=== PATIENT | male | born 1950 | race Caucasian/White ===

== ENCOUNTER 2023-02-25 06:03 | Inpatient (IN) ==
--- NOTE | 2023-02-11 09:35 | PAT Medication Instructions ---
Medication Instructions Date of Service February 11, 2023 Home Medications Medication Instructions Recorded Acetaminophen (Tylenol Extra 1,000 mg PO Q8H 21 days #126 tabs 03/02/16 Strength) albuterol sulfate 90 mcg/actuation 2 inh inhalation Q6H PRN shortness 06/16/22 aerosol inhaler (Ventolin HFA) of breath or wheezing #6.7 grams Acetaminophen (Tylenol Extra Strength) 1,000 mg PO Q8H albuterol sulfate 90 mcg/actuation aerosol inhaler (Ventolin HFA) 2 inh inhalation Q6H PRN atorvastatin 10 mg tablet 10 mg PO QAM ibuprofen 600 mg tablet 600 mg PO Q6H PRN lisinopril 20 mg-hydrochlorothiazide 12.5 mg tablet 1 tab PO QAM lorazepam 0.5 mg tablet 0.5 mg PO HS PRN omeprazole 20 mg capsule,delayed release 20 mg PO QAM ASK your surgeon for instructions ibuprofen 600 mg tablet 600 mg PO Q6H PRN DO NOT take the morning of surgery lisinopril 20 mg-hydrochlorothiazide 12.5 mg tablet 1 tab PO QAM Take morning of surgery With a small sip of water, OTHERWISE NOTHING TO EAT OR DRINK AFTER MIDNIGHT: Acetaminophen (Tylenol Extra Strength) 1,000 mg PO Q8H albuterol sulfate 90 mcg/actuation aerosol inhaler (Ventolin HFA) 2 inh inhalation Q6H PRN(use if needed; please bring with you to hospital day of surgery if possible) atorvastatin 10 mg tablet 10 mg PO QAM omeprazole 20 mg capsule,delayed release 20 mg PO QAM Take evening before surgery Acetaminophen (Tylenol Extra Strength) 1,000 mg PO Q8H albuterol sulfate 90 mcg/actuation aerosol inhaler (Ventolin HFA) 2 inh inhalation Q6H PRN(if needed) lorazepam 0.5 mg tablet 0.5 mg PO HS PRN(if needed) Other Notes If you have any questions please call us at [phone] or [phone] or [phone] or [phone]
--- NOTE | 2023-02-17 09:59 | Communication Note ---
Patient scheduled for L2-L3 Decompression and Fusion, L3-S1 Hardware Removal, Spinal Cord Monitoring 02/25/[address] Plasencia at [facility]. Spoke with patient 02/17/23 via phone- he states that he has dry cough + congestion with symptom onset 02/16/23. Denies fever, chills, shortness of breath, chest pain, wheezing. Reports that his had similar cold the week prior (did not Covid test). Patient is scheduled for PAT visit 02/18/23. Home Covid test negative. Decision for patient to keep 02/18 PAT visit as scheduled to evaluate/discuss further (given negative Covid home testing). Patient advised to contact/update PAT prior to visit if worsening of symptoms prior to visit. Will further assess patient at upcoming PAT visit.
--- NOTE | 2023-02-18 10:53 | Anesthesiology Consultation ---
Date of Service February 18, 2023 Assessment & Plan (1) Encounter for pre-operative examination: - Case discussed in detail with Dr. Rodriguez including EKG changes, he advised no further evaluation is needed prior to surgery from his standpoint. Patient denies change or increased symptoms since yesterday. He is agreeable to needed COVID test given upcoming surgery: negative. Communication note 02/17/23: Patient scheduled for L2-L3 Decompression and Fusion, L3-S1 Hardware Removal, Spinal Cord Monitoring 02/25/[address] Plasencia at [facility]. Spoke with patient 02/17/23 via phone-he states that he has dry cough + congestion with symptom onset 02/16/23. Denies fever, chills, shortness of breath, chest pain, wheezing. Reports that his had similar cold the week prior (did not Covid test). Patient is scheduled for PAT visit 02/18/23. Home Covid test negative. Decision for patient to keep 02/18 PAT visit as scheduled to evaluate/discuss further (given negative Covid home testing). Patient advised to contact/update PAT prior to visit if worsening of symptoms prior to visit. Will further assess patient at upcoming PAT visit. Chart Review Chart Review: Acceptable Risk for Surgery and Patient seen in Pre Admission Testing Consults Requested none Teaching & Discussion Pre-Anesthesia Teaching/Discussion Notes: Instructed NPO after midnight before surgery, except medications with 15 cc of water. Medication instructions provided according to the PAT guidelines. ASA ASA2 Proposed Anesthesia Anesthesia Type: General Risk / Benefits Reviewed With: PT / POA / Parent / Guardian, Accepts Plan and Informed Consent Obtained History Surgery Operation Date: 02/25/23 07:45 Proposed Procedures p L2-L3 Decompression and Fusion, L3-S1 Hardware Removal, Spinal Cord Monitoring - Deangelo Plasencia, DO Height/Weight Height: 5 ft 10 in Weight: 117.9 kg Allergies Allergy/AdvReac Type Severity Reaction Status Date / Time amoxicillin Allergy Intermediate HIVES Verified 02/25/23 06:23 hydrocodone AdvReac Intermediate JITTERY Verified 02/25/23 06:23 ANXIETY oxycodone AdvReac Intermediate HALLUCINATI Verified 02/25/23 06:23 ONS Medications Home Medications Medication Instructions Recorded Confirmed Last Taken Acetaminophen (Tylenol Extra 1,000 mg PO Q8H 21 days #126 tabs 03/02/16 02/25/2323 Strength) albuterol sulfate 90 mcg/actuation 2 inh inhalation Q6H PRN shortness 06/16/22 02/25/23 Unknown aerosol inhaler (Ventolin HFA) of breath or wheezing #6.7 grams atorvastatin 10 mg tablet 10 mg PO QAM 02/10/23 02/25/23 02/25/23 05:30 ibuprofen 600 mg tablet 600 mg PO Q6H PRN Pain 02/10/23 02/25/23 02/18/23 lisinopril 20 1 tab PO QAM 02/10/23 02/25/23 02/24/23 08:00 mg-hydrochlorothiazide 12.5 mg tablet lorazepam 0.5 mg tablet 0.5 mg PO HS PRN Sleep 02/10/23 02/25/23 Unknown omeprazole 20 mg capsule,delayed 20 mg PO QAM 02/10/23 02/25/23 02/25/23 05:30 release Active Medications Generic Name Dose Route Start Last Admin Trade Name Victor Manuelq PRN Reason Stop Dose Admin Acetaminophen 1,000 mg 02/25/23 06:00 02/25/23 06:42 Acetaminophen 500 Mg Tab PO 02/25/23 18:00 1,000 mg PREOP MEDARDO Administration Celecoxib 200 mg 02/25/23 06:00 02/25/23 06:42 Celebrex 200 Mg Cap PO 02/25/23 18:00 200 mg PREOP MEDARDO Administration Gabapentin 300 mg 02/25/23 06:00 02/25/23 06:42 Gabapentin 300 Mg Cap PO 02/25/23 18:00 300 mg PREOP MEDARDO Administration Lactated Ringer's 1,000 mls @ 15 mls/hr 02/25/23 06:00 02/25/23 06:55 Lr IV 02/26/23 05:59 15 mls/hr .Q24H MEDARDO Administration Lactated Ringer's 1,000 mls @ 60 mls/hr 02/25/23 06:00 02/25/23 06:55 Lr IV 02/25/23 22:39 Not Given .[id number] MEDARDO NPO Date Last Intake of Fluids: 02/25/23 Time Last Intake of Fluids: 00:00 Date Last Intake of Solids: 02/25/23 Time Last Intake of Solids: 00:00 Past Medical History Medical History Prediabetes Hyperlipidemia History of COVID-19 05/2022- no hosp; resolved Sleep apnea CPAP-compliant GERD (gastroesophageal reflux disease) controlled, stable per pt Hypertension controlled, stable per pt Lumbar stenosis Patient denies h/o stroke, seizures, heart attack, heart failure, blood clots/DVTs or blood transfusions. Exercise / Class Metabolic Activity II 4-5 Yardwork/Stairs/Walk up hill (denies chest discomfort or shortness of breath with 1 FOS) Past Family History Family History Other No family history of adverse response to anesthesia Past Surgical History Surgical History Hx of colonoscopy Hx of shoulder surgery left Hx of umbilical hernia repair History of arthroplasty of right knee History of lumbar fusion Past Anesthesia History No Hx of Anesthesia Complications and No Family Hx of Anesthesia Complications History of PONV No Hx of PONV and No Hx of Motion Sickness Social History Smoking Status: Former smoker Do You Dip or Chew Tobacco: No Smoking End Date: quit 1985 Hx Alcohol Use: Yes alcohol intake frequency: a few times a month Hx Substance Use: No substance use type: does not use Review of Systems Patient denies chest pain, shortness of breath, dyspnea on exertion, fever, chi lls, cough, wheezing, or palpitations. Physical Exam Vital Signs Last Vital Signs Temp 98.1 F 02/25/23 06:27 Pulse 101 H 02/25/23 06:27 Resp 20 02/25/23 06:27 BP 152/97 H 02/25/23 06:27 Pulse Ox 95 02/25/23 06:27 O2 Del Method Room Air 02/25/23 06:27 Vitals BP 130/83 P 94 TEMP 98.5 SP02 96% on RA RESP 17 Physical Patient resting comfortably in chair in no acute distress, alert and oriented, responding appropriately throughout visit Full cervical extension range of motion without pain TMD < 3 finger breadths Mallampati Score 2 Dentition: several caps/crowns; denies chipped or loose teeth, implants or bridges Lungs: normal respiratory effort. Good air movement, clear throughout to auscultation, no adventitious breath sounds Cardiac: regular rate and rhythm, no murmurs noted Carotid arteries: negative bruit bilat ENMT Mouth: no dentition abnormality Thyromental Distance: > or= 3.5 Finger Breadths Mallampati Class: II Neck normal visual inspection Respiratory normal respiratory effort Auscultation: lungs clear to auscultation bilaterally Cardiovascular Rate/Rhythm: regular rate and regular rhythm Lab Results Anesthesia Preop Results Results Anesthesia Widget: WBC 4.79 K/ul (4.8-10.8) L 02/18/23 Hgb 15.2 g/dl (14.0-18.0) 02/18/23 Hct 44.3 % (42.0-52.0) 02/18/23 Plt 169 K/uL (130-400) 02/18/23 Na 137 mmol/L (136-145) 02/18/23 K 4.1 mmol/L (3.5-5.1) 02/18/23 Cl 104 mmol/L (98-107) 02/18/23 CO2 26 mmol/L (21-32) 02/18/23 BUN 16 mg/dl (6-23) 02/18/23 Creat 0.94 mg/dl (0.6-1.4) 02/18/23 Glucose Level 87 mg/dl (70-99(Fasting)) 02/18/23 PT 11.1 Seconds (9.0-12.0) 02/18/23 PTT 26.8 Seconds (21.0-31.0) 02/18/23 INR 1.0 (0.9-1.1) 02/18/23 Urine Color Yellow 02/18/23 Urine Appearance Clear (Clear) 02/18/23 Urine pH 6.5 (4.5-7.5) 02/18/23 Urine Specific [place] 1.020 (1.000-1.030) 02/18/23 Urine Protein Negative (Negative) 02/18/23 Urine Glucose (UA) Negative (Negative) 02/18/23 Urine Ketones Trace (Negative) H 02/18/23 Urine Blood Negative (Negative) 02/18/23 Urine Nitrite Negative (Negative) 02/18/23 Urine Bilirubin Negative (Negative) 02/18/23 Urine Urobilinogen Negative (Negative) 02/18/23 Urine Leukocyte Esterase Negative (Negative) 02/18/23 COVID-19 PCR NEGATIVE (Negative) 02/18/23 Blood Type A Positive 02/18/23 Antibody Screen NEGATIVE 02/18/23 Testing Electrocardiogram Date: 02/18/23 NSR with sinus arrhythmia, rate 83 bpm Left axis deviation LVH with QRS widening When compared with 06/16/[address] no longer depressed in lateral leads T wave inversion now evident in inferior leads Chest X-Ray Date: 02/18/23 No acute process.
[~2023-02-25 06:03] MED LIST: ACETAMINOPHEN 500 MG TAB PO SCH; CLINDAMYCIN/D5W 600 MG/50 ML PREMIX BAG IV SCH; CeleBREX 200 MG CAP PO SCH; GABAPENTIN 300 MG CAP PO SCH; LR 15ML/HR IV SCH; LR 60ML/HR IV SCH
[2023-02-25] MEDS ORDERED: ATROPINE SULFATE 0.1 MG/ML 10ML SYR IV PRN (06:35)
[2023-02-25] MEDS ORDERED: HYDROmorphone INJ 1 MG/ML SYRINGE IV PRN ×2 (06:35→12:13)
[2023-02-25] MEDS ORDERED: fentaNYL citrate PF 100 MCG/2 ML VIAL IV PRN (06:35)
[2023-02-25] MEDS ORDERED: ePHEDrine sulfate 50 MG/ML AMP IV PRN (06:35)
[2023-02-25] MEDS ORDERED: fentaNYL citrate PF 100 MCG/2 ML VIAL ONE ×2 (07:08→09:20)
[2023-02-25] MEDS ORDERED: DEXAMETHASONE SOD INJ 4 MG/ML VIAL ONE (07:08)
[2023-02-25] MEDS ORDERED: MIDAZOLAM HCL 1 MG/ML 2ML VIAL ONE (07:08)
[2023-02-25] MEDS ORDERED: ROCURONIUM BROMIDE 10 MG/ML 5 ML VIAL IV ONE ×2 (07:08→08:21)
[2023-02-25] MEDS ORDERED: LIDOCAINE 2% 2 ML VIAL/AMP(20MG/ML) INFIL ONE (07:08)
[2023-02-25] MEDS ORDERED: PROPOFOL IV EMULSION 10 MG/ML 20 ML VIAL IV ONE (07:08)
[2023-02-25] MEDS ORDERED: BUPIVACAINE/EPINEPHRINE 0.25% 1:200,000 30 ML VIAL ONE (07:32)
--- NOTE | 2023-02-25 07:44 | History & Physical Bridge Note ---
Date of Service February 25, 2023 History & Physical Bridge Note I have examined the patient, reviewed the History & Physical and in the interval since the performance of the History & Physical I have noted the following changes of clinical significance: no changes noted
--- NOTE | 2023-02-25 07:45 | History & Physical Report ---
Date of Service February 25, 2023 Assessment & Plan (1) Neurogenic claudication due to lumbar spinal stenosis: Plan: L2-L3 decompression fusion, L3-S1 hardware removal History of Present Illness Chief Complaint: Back and bilateral leg pain Primary Care Provider: Ulises Ambrose MD This is a 72-year-old male well-known to me the presents for chronic persistent back and leg pain after failing course of nonoperative care is here for surgical invention. Allergies Allergy/AdvReac Type Severity Reaction Status Date / Time amoxicillin Allergy Intermediate HIVES Verified 02/25/23 06:23 hydrocodone AdvReac Intermediate JITTERY Verified 02/25/23 06:23 ANXIETY oxycodone AdvReac Intermediate HALLUCINATI Verified 02/25/23 06:23 ONS Home Medications Medication Instructions Recorded Confirmed Type Acetaminophen (Tylenol Extra 1,000 mg PO Q8H 21 days #126 tabs 03/02/16 02/25/23 Rx Strength) albuterol sulfate 90 mcg/actuation 2 inh inhalation Q6H PRN shortness 06/16/22 02/25/23 Rx aerosol inhaler (Ventolin HFA) of breath or wheezing #6.7 grams atorvastatin 10 mg tablet 10 mg PO QAM 02/10/23 02/25/23 History ibuprofen 600 mg tablet 600 mg PO Q6H PRN Pain 02/10/23 02/25/23 History lisinopril 20 1 tab PO QAM 02/10/23 02/25/23 History mg-hydrochlorothiazide 12.5 mg tablet lorazepam 0.5 mg tablet 0.5 mg PO HS PRN Sleep 02/10/23 02/25/23 History omeprazole 20 mg capsule,delayed 20 mg PO QAM 02/10/23 02/25/23 History release Past Med/Surg History Medical History Prediabetes Hyperlipidemia History of COVID-19 05/2022- no hosp; resolved Sleep apnea CPAP-compliant GERD (gastroesophageal reflux disease) controlled, stable per pt Hypertension controlled, stable per pt Lumbar stenosis Surgical History Hx of colonoscopy Hx of shoulder surgery left Hx of umbilical hernia repair History of arthroplasty of right knee History of lumbar fusion Family History Other No family history of adverse response to anesthesia Social History Smoking Status: Former smoker Tobacco Type: Cigarettes Smoking End Date: quit 1985; Second Hand Exposure: No; Do You Dip or Chew Tobacco: No; Tobacco Cessation Education Requested by Patient: No Hx Alcohol Use: Yes Hx Substance Use: No Preferred Language: Luxembourger Communication Ability: Effective General Car Yard Supervisor Required: No Beliefs That Will Affect Care: None Current Living Situation: Spouse Other Information That Helps Us Care for You: No Feels Safe at Home: Yes Safety Concerns: Feels Safe At This Time Assistive Devices: CPAP and Glasses Assistive Devices Comment: reading glasses Physical Exam Physical Exam: Patient is alert and oriented Heart regular in rhythm Lungs clear Results & Data Results & Data Vital Signs (Past 12 Hours) Vital Signs Temp Pulse Resp BP Pulse Ox O2 Del Method 02/25/23 06:27 Room Air 02/25/23 06:27 36.7 C 101 H 20 152/97 H 95 Room Air
[2023-02-25] MEDS ORDERED: CLINDAMYCIN/D5W 300 MG/50 ML BAG IV ONE (07:49)
[2023-02-25] MEDS ORDERED: CLINDAMYCIN 300 MG/D5W 50 ML BAG IV ONE (07:51)
[2023-02-25] MEDS ORDERED: FLOSEAL HEMOSTATIC MATRIX 10ML TOP ONE (08:26)
[2023-02-25] MEDS ORDERED: PHENYLEPHRINE HCL 10 MG/ML VIAL ONE (08:27)
--- OUTSIDE RECORDS SUMMARY | 2023-02-25 09:25 | External Medical Summary | Summary of Care ---
Author Name Unknown Organization [facility] Address [address] [place] [address] Phone [phone] Care Team Providers Care Weaver Axminster Name Role Phone Ulises Ambrose MD Primary Care Provider + Reason for Visit * Reason Comments pre-op exam Pt here for pre op c learance for back surgery on 02/25/23 Encounter Details Date Type Department Care Team (Late st Contact Info) Description 02/20/2023 10:20 AM EST Office Visit Family [facility] [address] [facility] [place] [address] Raudel Morrison CRNP [address] [facility] [place] [address] Preop examination*; Spinal stenosis of lumbar region with neurogenic claudication; HTN, goal below 140/90; Gastroesophageal reflux disease with esophagitis without hemorrhage; Dyslipidemia, goal LDL below 160; Prediabetes; BMI 37.0-37.9, adult Allergies Active Allergy Reactions Criticality Noted Date Comments Amoxicillin 03/09/1998 rash Hydrocodone Neuro complications (Please comment) 03/11/2017 Jittery Oxycodone Neuro complications (Please comment) 03/11/2017 Hallucinations, temperature increase documented as of this encounter (statuses as of 02/20/2023) Medications Medication Sig Dispensed Refills Start Date End Date Status SHEILA 60 MG PO TABS as needed 0 Active ibuprofen (MOTRIN) 600 MG Tablet one pill four times a day as needed with food for pain 90 Tab 2 10/05/2014 Active Clinitest Rapid COVID-19 Test In Vitro Kit (COVID-19 At Home Antigen Test) use as directed 5 Kit 5 06/18/2022 Active Additional Information Patient not taking.Reported on 01/14/2023 Lisinopril-hydroC HLOROthiazide 20-12.5 MG Oral TabletIndications :HTN, goal below 140/90 Take 1 Tablet by mouth in the morning. 90 Tablet 3 07/17/2022 Active Omeprazole 20 MG Oral Capsule Delayed Release (PriLOSEC)Indicat ions:Gastroesopha geal reflux disease with esophagitis without hemorrhage Take 1 Capsule by mouth in the morning. 90 Capsule 3 07/17/2022 Active Atorvastatin Calcium 10 MG Oral Tablet (Lipitor) TAKE 1 TABLET BY MOUTH EVERY EVENING 90 Tablet 2 10/23/2022 Active Azithromycin 250 MG Oral Tablet (Zithromax) take 2 tablets by mouth on day 1 then 1 tablets daily days 2-5. 6 Tablet 0 02/19/2023 Active Additional Information Patient not taking.Reported on 02/20/2023 LORazepam 0.5 MG Oral Tablet (Ativan) Take by mouth 1 Tablet as needed before bedtime for Anxiety or Sleep. 30 Tablet 0 05/10/2021 3 Discontinue d(Medicatio n List Clean Up) Benzonatate 200 MG Oral Capsule Take 1 Capsule by mouth as needed. 0 06/16/2022 3 Discontinue d(Medicatio n List Clean Up) LORazepam 1 MG Oral Tablet (Ativan) take 1 tablet by mouth 1 hour prior to study if needed. 2 Tablet 0 09/22/2022 3 Discontinue d(Medicatio n List Clean Up) documented as of this encounter (statuses as of 02/20/2023) Active Problems Problem Noted Date Diagnosed Date History of 2019 novel coronavirus disease (COVID -19) 05/10/2021 Overview: 03/12 vaccinated, asymptomatic. 06/12 2nd episode. Erectile dysfunction 03/11/2019 S/P lumbar fusion 03/10/2018 Well adult exam 03/10/2018 Overview: 09/2021 colon WNL Iesha 5y 05/2016 colon 4mm polyp tubular adenoma iesha 5y Lumbar degenerative disc disease 07/26/2017 Arthritis of knee, right 02/26/2015 Adjustment disorder with depressed mood 01/25/20 15 Dyslipidemia, goal LDL below 160 02/23/2014 Severe obesity with body mas s index (BMI) of 35.0 to 39.9 with serious comorbidity 02/23/2014 Overview: ICD-10 update of inactive diagnosis Prediabetes 06/18/2012 Other allergic rhinitis 11/15/2010 Overview: ICD-10 update of inactive term Sciatica 05/11/2009 ADVANCE DIRECTIVE INFORMATION 05/15/2006 Overview: Pt has a living will. Advised to bring copy at next visit. HTN, goal below 140/90 05/15/2006 Reflux esophagitis 07/26/1999 documented as of this encounter (statuses as of 02/20/2023) Resolved Problems Problem Noted Date Diagnosed Date Resolved Date Umbilical hernia 05/11/2009 03/10/2018 Backache 05/11/2009 03/10/2018 Dyslipidemia, goal to be determined 03/08/2009 02/23/2014 Overview: Per Lipid Taxonomy. Benign neoplasm of colon 01/09/2006 Overview: adenomatous polyp--repeat 5 years ELEV BL PRES W-O HYPERTN 11/12/2005 OBESITY, UNSPECIFIED 08/28/2004 015 PURE HYPERCHOLESTEROLEM 01/23/199902/20 Overview: Per Lipid Taxonomy. ADJ DISORDER W/DEPRES MOOD 04/11/1998 0 06/18/2012 documented as of this encounter (statuses as of 02/20/2023) Immunizations Name Administration Dates Next Due COVID-19 mRNA, LNP-s, No Pre serve, 2-Dose Series (Moderna) 05/20/2020,04/16/2020 COVID-19, mRNA, LNP-s, PF, B ooster, 100mcg/0.5mg (Moderna) 01/29/2021 Pneumococcal Conjugate Vacc, 13 Valent (Prevnar) 03/11/2019 Pneumococcal Polysaccharide PPV23 (Pneumovax) 03/10/2018 SEASONAL INFLUENZA, PF, 6 M & Above, IM , (FLULAVAL or FLUZONE) 12/21/2018,12/21/2017 Season Influenza, Quad, PF, Adjuvanted, 65+ Yrs, IM (FLUAD) 11/24/2019 Seasonal Influenza Virus Vac cine, Unspecified Formulation 12/03/2021 Seasonal Influenza, Quadriva lent Hd (Fluzone Hd) 12/15/2022 Seasonal Influenza, Split, I IV3, With Preserve, Inj 12/21/2016,01/02/2016,11/28/2014,01/05,01/15/2013,02/06/2012,01/16/2011 ,02/01/2010,02/04/2009,02/02/2008 TDAP (age 10 and older)(Boostrix) 05/10/2021 TDAP (age 11 and older)(Adacel) 11/15/2010 Varicella Zoster Vaccine (Adult) 02/11/2013 Zoster Vaccine Recombinant (Shingrix) 05/24/2019 ,03/11/2019 documented as of this encounter Social History Tobacco Use Types Packs/Day Years Used Date Smoking Tobacco: Former Cigarettes 1 16 Q uit: 08/21/1985 Smokeless Tobacco: Never Tobacco Cessation:Counseling Given: Not Answered Alcohol Use Standard Drinks/Week Comments Yes 0 (1 standard drink = 0.6 oz pur e alcohol) 10/ PHQ-2 Answer Date Recorded PHQ Adult Total Score 0 06/18/2022 Hunger Vital Sign Answer Date Recorded Within the past 12 months, y ou worried that your food would run out before you got the money to buy more. Never true 06/19/19 23 Within the past 12 months, t he food you bought just didn't last and you didn't have money to get more. Never true 06/18/2022 Sex and Gender Information Value Date Recorded Sex Assigned at Male 06/18/2022 10:12 AM EDT Gender Identity Male 06/18/2022 10:12 AM EDT Sexual Orientation Straight 06/18/2022 10 :12 AM EDT Job Start Date Occupation Industry Not on file Not on file Not on file documented as of this encounter Last Filed Vital Signs Vital Sign Reading Time Taken Comments Blood Pressure 128/74 02/20/2023 10:09 AM EST Pulse 104 02/20/2023 10:09 AM EST Temperature 36.7 C (98.1 F) 02/20/2023 1 0:09 AM EST Respiratory Rate 16 02/20/2023 10:0 9 AM EST Oxygen Saturation 96% 02/20/2023 10: 09 AM EST Inhaled Oxygen Concentration - - Weight 117.6 kg (259 lb 4.8 oz) 023 10:09 AM EST Height 177.8 cm (5' 10") 02/20/2023 10: 09 AM EST Body Mass Index 37.21 02/20/2023 10:09 AM EST documented in this encounter Progress Notes * Raudel Morrison CRNP - 02/20/2023 10:20 AM EST Images from the original note were not included. Pre-Operative Medical Evaluation Procedure Information Type of Surgery: Lumbar decompression and fusion L2-3 with removal of instrumentation L3-S1 Referring Physician / Surgeon: Dr. Plasencia Date of procedure: 02/25/23 Brief History of Present Illness: Greg is 72 year old male with a longstanding low back pain, hx of L3-S1 fusion by Dr. Villarreal on 10/17/14. Conservative management including injection didn't relieve his symptom, so he decided to proceed surgical intervention. No fever, chills, chest pain, shortness of breath, headache, nausea, vomit, diarrhea, or vision changes. Sometimes he has constipation. GERD is well controlled with omeprazole. Had complete blood work at the hospital on 02/18/23. Medical History Problem List: History of 2019 novel coronavirus disease (COVID-19) (05/10/2021) Erectile dysfunction (03/11/2019) S/P lumbar fusion (03/10/2018) Well adult exam (03/10/2018) Lumbar degenerative disc disease (07/26/2017) Arthritis of knee, right (02/26/2015) Adjustment disorder with depressed mood (01/24/2015) Dyslipidemia, goal LDL below 160 (02/23/2014) Severe obesity with body mass index (BMI) of 35.0 to 39.9 with serious comorbidity (HCC) (02/23/2014) Prediabetes (06/18/2012) Other allergic rhinitis (11/15/2010) Sciatica (05/11/2009) Umbilical hernia (05/11/2009) Backache (05/11/2009) Dyslipidemia, goal to be determined (03/08/2009) ADVANCE DIRECTIVE INFORMATION (05/15/2006) HTN, goal below 140/90 (05/15/2006) Benign neoplasm of colon (01/09/2006) ELEV BL PRES W-O HYPERTN (11/12/2005) OBESITY, UNSPECIFIED (08/28/2004) Reflux esophagitis (07/26/1999) PURE HYPERCHOLESTEROLEM (01/23/1999) ADJ DISORDER W/DEPRES MOOD (04/11/1998) Current Medications Atorvastatin Calcium 10 MG Oral Tablet (Lipitor), 10 mg, Oral, Daily 1900 Lisinopril-hydroCHLOROthiazide 20-12.5 MG Oral Tablet, 1 Tablet, Oral, Daily(AM) Omeprazole 20 MG Oral Capsule Delayed Release (PriLOSEC), 20 mg, Oral, Daily(AM) ibuprofen (MOTRIN) 600 MG Tablet, one pill four times a day as needed with food for pain Clinitest Rapid COVID-19 Test In Vitro Kit (COVID-19 At Home Antigen Test), use as directed (Patient not taking: Reported on 01/14/2023) SHEILA 60 MG PO TABS, as needed Allergies: Amoxicillin, Hydrocodone, and Oxycodone Past Medical History: has a past medical history of Benign neoplasm of colon (01/09/06), Dyslipidemia, goal to be determined (03/08/2009), Erectile dysfunction (03/11/2019), HTN, goal below 140/90 (05/15/2006), Prediabetes(06/18/2012), Reflux esophagitis (07/26/1999), and S/P lumbar fusion (03/10/2018). Past Surgical History: has a past surgical history that includes colonoscopy (01/09/2006); Miscellaneous Order ([facility] Only)(1990); Colonoscopy, Diagnostic (Rectum) (12/20/2010); Injection Lumbar/Sacral (09/21/2014); Injection Lumbar/Sacral (10/05/2014); lumbar spine fusion w/bone graft (10/17/2014); Arthroplasty Knee Total (Right, 02/2016); Colonoscopy, Diagnostic (Rectum) (05/23/2016); umbil hernia repair (reducible) age 5+yr (N/A, 03/20/2017); spine surgery procedure nec (2014); Sacroiliac Joint Inject w/Guidance (10/08/2017); Sacroiliac Joint Inject w/Guidance (11/19/2017); Sacroiliac Joint Inject w/Guidance (03/11/2018); shoulder arthroscopy surgery (Left, 04/05/2020); Colonoscopy, Diagnostic (Rectum) (08/23/2021); L-/S-spine Paravertebral facet Inj,1 level (11/06/2021); Arthrocent ASP &/or Inj Major Jx/Bursa w/o US (12/11/2021); and Arthrocent ASP &/or Inj Major Jx/Bursa w/o US (12/10/2022). Social History: reports that he quit smoking about 37 years ago. His smoking use included cigarettes. He has a 16.00 pack-year smoking history. He has never used smokeless tobacco. He reports current alcohol use. Hereports that he does not use drugs. Family History: family history includes Cancer in his sister; Diabetes in his mother; Gastro- intestinal disorder inhis mother; Heart Disorder in his father; Heart failure (age of onset: 80) in his father; No Known Problems in his brother. Anesthesia History Anesthesia reaction: No History of surgical complications: No Personal history of venous thromboembolic disease: No Physical Exam Vitals: 02/20/23 1009 Temp: 36.7 C (98.1 F) Pulse: 104 Resp: 16 SpO2: 96% BP: 128/74 BMI: 37.21 Physical Exam Constitutional: Appearance: Normal appearance. HENT: Head: Normocephalic. Nose: No congestion or rhinorrhea. Mouth/Throat: Pharynx: No posterior oropharyngeal erythema. Eyes: Extraocular Movements: Extraocular movements intact. Pupils: Pupils are equal, round, and reactive to light. Cardiovascular: Rate and Rhythm: Normal rate and regular rhythm. Pulmonary: Effort: Pulmonary effort is normal. Breath sounds: Normal breath sounds. Musculoskeletal: General: No swelling. Cervical back: Neck supple. Right lower leg: No edema. Left lower leg: No edema. Skin: General: Skin is warm. Neurological: Mental Status: He is alert and oriented to person, place, and time. Psychiatric: Mood and Affect: Mood normal. Labs reviewed and are significant for: Last A1C 6 on 06/18/22. Reviewed labs from [facility] on 02/18/23, CBC, BMP, UA, PT/INR, PTT within normal limits. Surgical Risk Scoring Revised Cardiac Risk Index (RCRI) High-risk type of surgery (examples include vascular and any open intraperitoneal or intrathoracic procedures): 0=No History of ischemic heart disease (history of myocardial infarction or positive exercise test, current compliant of chest pain considered to be secondary to myocardia ischemia, use of nitrate therapy, or ECG with pathological Q waves; do not count prior coronary revascularization procedure unless one of the other criteria for ischemic heart disease is present): 0=No History of heart failure: 0=No History of cerebrovascular disease: 0=No Diabetes mellitus requiring treatment with insulin: 0=No Preoperative serum creatinine >2.0 mg/dL (177 micromol/L): 0=No Pt has revised cardiac index score of: No Risk Factors- 0.4% (95% CI: 0.1-0.8) Screening for Obstructive Sleep Apnea (STOP-BANG) Sleep Apnea on CPAP Assessment and Plan Preop examination Chronic conditions well controlled, medically optimized for surgery Spinal stenosis of lumbar region with neurogenic claudication HTN, goal below 140/90 Gastroesophageal reflux disease with esophagitis without hemorrhage Dyslipidemia, goal LDL below 160 Prediabetes BMI 37.0-37.9, adult Functional Assessment They are able to walk up a flight of stairs. The patient's functional status is good (greater than 4 METS). 1 MET: 4 METs: 4-10 METs: Can take care of self, such as eat, dress or use the toilet. Can walk to block or go up a flight of steps. Can do heavy house work. Surgical Risk Assessment Patient is low medical risk for the listed procedure. Medication adjustments: Continue medications until the day before surgery Miralax daily as needed for constipation documented in this encounter Plan of Treatment Upcoming Encounters Date Type Department Care Team (Late st Contact Info) Description 04/06/2023 11:40 AM EST [facility] [address] [place] [id number] Rosy Faye DO [address] [place] [address] 06/25/2023 9:00 AM EDT Office Visit Family Practice [facility] [address] [place] [address] Ulises Ambrose MD [address] [place] [id number] Scheduled Procedures Name Priority Associated Diagnoses Date/Ti me COLONOSCOPY FLEXIBLE PROXIMAL DIAGNOSTIC Recall History of colon polyps Health Maintenance Due Date Last Done Comments COVID-19 Vaccine (2022- season) 2022 07/26/2021, 01/29/2021, 05/20/2020, Additional history exists Depression Screening 06/19/2023 06/18/2022 GFR 06/19/2023 06/18/2022, 04/23, 05/09/2020, Additional history exists HbA1c 06/19/2023 06/18/2022, 04/23, 03/11/2019, Additional history exists Albumin/Creatinine Ratio 06/19/2025 06/19/2022 COLONOSCOPY-EVERY 5 YRS AGES 18-100 08/23/2026 08/23/2021, 08/23/2021, 05/23/2016, Additional history exists Lipid Panel 07/22/2027 07/21/2022, 05/22, 05/10/2021, Additional history exists DTaP,Tdap,and Td Vaccines (3 - Td or Tdap) 05/10/2031 05/10/2021, 11/15/2010, 08/04/2003 AAA Screening Completed 03/12/2018 Pneumococcal Vaccine: 65+ Years Completed 03/11/2019, 03/10/2018 Zoster Vaccines Completed 05/24/2019, 02/21, 02/11/2013 Influenza Vaccine (FLU shot) Completed , 12/03/2021, 12/03/2021, Additional history exists GARDASIL-HPV IMMUNIZATION SERIES Aged Out No longer eligible based on patient's age to complete this topic Hepatitis B Aged Out No longer eligi ble based on patient's age to complete this topic MENINGOCOCCAL (MENACTRA/MENVEO) Aged Out No longer eligible based on patient's age to complete this topic documented as of this encounter Medical Devices Implanted Type Area Inflatable Buildings Laminator Device Identifier Shelf Expiration Date Model / Serial / Lot Patch Hernia Ventralex Med - [id number] Implanted:Qty: 1 on 03/20/2017 by [place] MD at OR [facility] N/A: Abdomen CR BARD : DAVOL 10/17/2018 [id number] / / [id number] documented as of this encounter Visit Diagnoses Diagnosis Preop examination- Primary Preoperative examination, unspecified Spinal stenosis of lumbar region with neurogenic claudication Spinal stenosis, lumbar region, with neurogenic claudication HTN, goal below 140/90 Unspecified essential hypertension Gastroesophageal reflux disease with esophagitis without hemorrhage Dyslipidemia, goal LDL below 160 Other and unspecified hyperlipidemia Prediabetes Other abnormal glucose BMI 37.0-37.9, adult documented in this encounter Care Teams Weaver Axminster Relationship Specialty Start Date End Date [facility]ises [facility]rose [facility] [place] [address] PCP - General Family Medicine 01/12/18 documented as of this encounter
[2023-02-25] MEDS ORDERED: HYDROmorphone INJ 2 MG/ML SYR/VIAL ONE (10:22)
--- NOTE | 2023-02-25 10:26 | Operative Report ---
Post Operative Report Pre & Post Diagnosis Operation Date: 02/25/23 07:45 Pre-Op Diagnosis: Spinal Stenosis of Lumbar Region with Neurogenic Claudication Post-Op Diagnosis: Spinal Stenosis of Lumbar Region with Neurogenic Claudication I identified the patient and participated in the time-out.: Yes Procedure Operation Date: 02/25/23 07:45 Actual Procedures #1 removal of posterior segmental instrumentation L3-S1. #2 exploration of fusion L3-S1. #3 lumbar decompression bilaterally facetectomies and foraminotomies L1-L2 L2-L3. #4 posterior spinal fusion L2-L3. #5 posterior instrumentation L2-L3. #6 interbody fusion L2-L3. #7 placement of Spira 10 x 26 mm at L2-L3. #8 placement locally harvested morselized autograft and p osterior gutters. #9 placement of I factor interbody space and infuse collagen sponge, mass graft in the posterior lateral gutters. Surgeon Deangelo Plasencia, DO Facing End Trimmer Viviane Flores Estimated Blood Loss 300 Findings See Below The patient is 5 foot 10 weighing over 115 kg with a BMI in excess of 36. The patient's body habitus did contribute to significant technical difficulty requiring her deepest retractors along instruments in order to perform his procedure. This at least 50% increased operative time. Specimens None Indications This is a 72-year-old male who presents above-mentioned diagnosis of failed course of nonoperative care is here for surgical invention. Description of Procedure Patient was met with identified informed consent obtained. Patient was then taken to the operative suite underwent a patient placed in a prone position the [facility] frame. All bony promises well-padded eyes inspected to ensure no external pressure placed upon the. This point the lumbar spine was prepped and draped in a sterile fashion. Sharp dissection with the assistance of Bovie cautery to form down to and exposing the lamina and transverse processes of L2 and the instrumentation from L3-S1. Then proceeded move the end caps and rods bilaterally. Was able to remove the pedicle screws at L2-3 and L4 bilaterally. The remaining screws were ensconced and bone and has the fusion was mature intact elected to leave them in place versus the amount of blood loss required to remove them in their entirety. Then performed a complete laminectomy of L2 partial and active L1 including bilateral medial facetectomies and foraminotomies of addressing severe spinal stenosis. Pedicle screws then placed in L2-L3 bilaterally with assistance of fluoroscopy and process bob placed. By way of a trans foraminal approach on the right complete discectomy of L2-L3 was performed endplates guided to subcortical bleeding bone and a 10 x 26 mm Spira cage with I factor tapped in position. The rods then locked into final position bilaterally. The transverse processes of L2-L3 burred to miller bcortically bone. Infuse collagen sponge, master graft and autograft was placed in the posterior gutters. 15 round LILLY drain inserted. The incision was then closed with 1 Vicryl the fascia 2-0 Vicryl subcutaneously and 4 Monocryl for final skin closure. Steri-Strips sterile dressing placed. Patient waken taken to PACU stable condition. Please note spinal cord monitoring was utilized at the procedure no changes noted. Lastly Viviane Flores was present at the entire surgery and while the patient positioning complex course of the surgery and final skin closure. I attest to the content of the Intraoperative Record and any orders documented therein. Any exceptions are noted below.
--- NOTE | 2023-02-25 10:50 | Fluoroscopy Report ---
INTRAOPERATIVE RADIOGRAPHS CLINICAL HISTORY: Lumbar spinal fusion. Fluoro time: 26 seconds Ka,r: 23.07 mGy FINDINGS: 2 spot fluoroscopic views of the lumbar spine are presented. There has been discectomy with laminectomy and posterior fusion in the upper lumbar region. This is reportedly L2-L3. The exact lev el cannot be delineated on the provided images. Interpedicular screws are present at both levels. The orthopedic hardware appears intact. Hardware is also partially visualized in the lower lumbar region . IMPRESSION: Intraoperative images from lumbar spinal fusion surgery as above. Electronically signed by: Pan Peralta M.D. 02/25/2023 10:49 AM
--- NOTE | 2023-02-25 12:07 | Anesthesiology Progress Note ---
Date of Service February 25, 2023 Anesthesia Post Procedure Vital Signs Vital Signs: Temp Pulse Pulse Resp BP Pulse Ox O2 Del Method 02/25/23 11:25 97.2 F L 82 15 121/69 96 Nasal Cannula 02/25/23 11:15 77 14 124/69 96 Nasal Cannula 02/25/23 11:05 78 15 145/84 H 94 Nasal Cannula 02/25/23 10:55 85 17 169/87 H 94 Oxymask 02/25/23 10:46 97.9 F 81 17 156/79 H 94 Oxymask 02/25/23 06:27 Room Air 02/25/23 06:27 98.1 F 101 H 20 152/97 H 95 Room Air O2 Flow Rate 02/25/23 11:25 4 02/25/23 11:15 4 02/25/23 11:05 4 02/25/23 10:55 5 02/25/23 10:46 5 02/25/23 06:27 02/25/23 06:27 Pain Intensity Bilateral Lower Back: Pain Intensity: 3 Transfer of Care Handoff Completed per policy Notes Mental Status: alert / awake / arousable and participated in evaluation Patient Amnestic to Procedure: Yes Nausea / Vomiting: adequately controlled Pain: adequately controlled Airway Patency, RR, SpO2: stable & adequate BP & HR: stable & adequate Hydration State: stable & adequate Anesthetic Complications: no major complications apparent and Pt Satisfied with anesthetic care
[2023-02-25] MEDS ORDERED: ACETAMINOPHEN 500 MG TAB PO PRN (12:13)
[2023-02-25] MEDS ORDERED: PROMETHAZINE HCL 12.5 MG in SODIUM CHLORIDE 0.9% 50 ML IV PRN (12:13)
[2023-02-25] MEDS ORDERED: MAGNESIUM HYDROXIDE SUSP 30 ML UDC PO PRN (12:13)
[2023-02-25] MEDS ORDERED: METOCLOPRAMIDE HCL INJ 5 MG/ML 2 ML VIAL IV PRN (12:13)
[2023-02-25] MEDS ORDERED: bisacodyL 10 MG SUPP PR PRN (12:13)
[2023-02-25] MEDS ORDERED: diphenhydrAMINE Capsule 25 MG CAP PO PRN (12:13)
[2023-02-25] MEDS ORDERED: ALUMINUM/MAGNESIUM SUSP 30 ML UDC PO PRN (12:13)
[2023-02-25] MEDS ORDERED: DO NOT ADMINISTER FLU VACCINE PRN (12:13)
[2023-02-25] MEDS ORDERED: LORazepam 0.5 MG in SYRINGE 0.25 ML IV PRN (12:13)
[2023-02-25] MEDS ORDERED: hydrOXYzine HCl 25 MG TAB PO PRN (12:13)
[2023-02-25] MEDS ORDERED: DO NOT ADMINISTER PNEUMOCOCCAL VACCINE PRN (12:13)
[2023-02-25] MEDS ORDERED: ONDANSETRON 4 MG OD TAB PO PRN (12:13)
[2023-02-25] MEDS ORDERED: LORazepam 0.5 MG TAB PO PRN (12:13)
[2023-02-25] MEDS ORDERED: ACETAMINOPHEN 1,000 MG/100 ML VIAL IV PRN (12:13)
[2023-02-25] MEDS ORDERED: ALBUTEROL HFA 8 GM INHALER INH PRN (12:13)
[2023-02-25] MEDS ORDERED: NALOXONE HCL 0.4 MG/1 ML VIAL/CARP IV PRN (12:13)
[2023-02-25] MEDS ORDERED: FAMOTIDINE 20 MG TAB PO PRN (12:13)
[2023-02-25] MEDS ORDERED: SOD PHOSPHATE/SOD BIPHOSPHATE ENEMA 132 ML BTL PR PRN (12:13)
[2023-02-25] MEDS ORDERED: ONDANSETRON INJ 2 MG/ML 2 ML VIAL IV PRN (12:13)
[2023-02-25] MEDS ORDERED: HYDROmorphone INJ 0.5 MG/0.5 ML SYR IV PRN (12:13)
--- NOTE | 2023-02-25 12:19 | Hospitalist Consultation ---
Date of Consultation February 25, 2023 Assessment & Plan (1) Neurogenic claudication due to lumbar spinal stenosis: (2) Lumbar stenosis: - S/p Lumbar decompression fusion of L1-L3, hardware removal of L3-S1, POD 0 - Pain management, bowel regimen and DVT ppx per the primary team - PT/OT consults, pt is planning on outpatient therapy - Follow am CBC to monitor for acute blood loss, last Hgb was 15.2 on 02/18 (3) Hypertension: - Chronic, stable - Continue on lisinopril/HCTZ (4) GERD (gastroesophageal reflux disease): - Chronic, stable, cont omeprazole (5) Sleep apnea: - Chronic, continue CPAP HS (6) Hyperlipidemia: - Chronic, stable, Cont atorvastatin 10 mg QAM DVT ppx:teds, scds Lines: 2 PIV GI/FEN: Clear and advance as tolerated CODE: FULL Dispo: From home, likely to remain in the hospital x 1-2 days Thank you for involving us in the care of Mr. Cortez. Please do not hesitate to call with questions or concerns. At this time medicine service will follow along. Supervising Physician Co-Signing Physician Notes I have seen and examined the patient and have discussed the case with the provider above. I agree with the assessment and plan as stated. Meds reviewed. Patient is doing well post operatively. Hemodynamically stable and oxygenating 97 % on 3LPM oxygen. He admits pain is well controlled, denies numbness or pain in his feet. LILLY drain in place and Hoffman in place. Recovering well. Cont plan as noted above. DO Henry History of Present Illness Reason for Consultation: Medical management Requesting Physician: Dr. Plasencia Attending Physician: Deangelo Plasencia DO History of Present Illness This is a 72 yo M with PMHx of HTN, HLD, prediabetes, REGINA on CPAP, lumbar st enosis, GERD who presents for elective L2-L3 lumbar decompression fusion and L3- S1 hardware removal. The patient is doing well other than he feels very tired after having surgery. Denies acute pain, rates it as a 4/10 in his lower back. Denies any numbness, tingling down legs and is able to wiggle his toes and bend his knees without any difficulty. He does not wear supplemental O2 at baseline but does wear CPAP at bedtime which his is bringing from home today. The patient knows some of his medications, not the names but does recognize the dosing and what they are used for. Last bowel movement was yesterday, has tolerated a sip of water since coming upstairs, not yet had clear liquid lunch. Allergies Allergy/AdvReac Type Severity Reaction Status Date / Time amoxicillin Allergy Intermediate HIVES Verified 02/25/23 06:23 hydrocodone AdvReac Intermediate JITTERY Verified 02/25/23 06:23 ANXIETY oxycodone AdvReac Intermediate HALLUCINATI Verified 02/25/23 06:23 ONS Home Medications Medication Instructions Recorded Confirmed Type Acetaminophen (Tylenol Extra 1,000 mg PO Q8H 21 days #126 tabs 03/02/16 02/25/23 Rx Strength) atorvastatin 10 mg tablet 10 mg PO QAM 02/10/23 02/25/23 History ibuprofen 600 mg tablet 600 mg PO Q6H PRN Pain 02/10/23 02/25/23 History lisinopril 20 1 tab PO QAM 02/10/23 02/25/23 History mg-hydrochlorothiazide 12.5 mg tablet lorazepam 0.5 mg tablet 0.5 mg PO HS PRN Sleep 02/10/23 02/25/23 History omeprazole 20 mg capsule,delayed 20 mg PO QAM 02/10/23 02/25/23 History release Patient History Medical History Prediabetes Hyperlipidemia History of COVID-19 05/2022- no hosp; resolved Sleep apnea CPAP-compliant GERD (gastroesophageal reflux disease) controlled, stable per pt Hypertension controlled, stable per pt Lumbar stenosis Surgical History Hx of colonoscopy Hx of shoulder surgery left Hx of umbilical hernia repair History of arthroplasty of right knee History of lumbar fusion Family History Other No family history of adverse response to anesthesia Social History Smoking Status: Former smoker Tobacco Type: Cigarettes Smoking End Date: quit 1985; Second Hand Exposure: No; Do You Dip or Chew Tobacco: No; Tobacco Cessation Education Requested by Patient: No Hx Alcohol Use: Yes Hx Substance Use: No Preferred Language: Czech Communication Ability: Effective Commanding Officer Garage Required: No Beliefs That Will Affect Care: None Current Living Situation: Spouse Other Information That Helps Us Care for You: No Feels Safe at Home: Yes Safety Concerns: Feels Safe At This Time Assistive Devices: CPAP and Glasses Assistive Devices Comment: reading glasses Review of Systems Review of Systems: Constitutional: No fever, sweats or chills, +tired Eyes: No diplopia, no worsening or blurred vision ENT: normal hearing, no trouble swallowing Respiratory: No cough, sputum, dyspnea at rest or on exertion Cardiovascular: No chest pain, tightness or palpitations Back: lumbar back pain Abdomen: No pain, nausea, vomiting, diarrhea or constipation Musculoskeletal: No joint pain, calf pain, swelling Neurologic: No weakness, numbness/tingling, or balance problems Psychiatric: No anxiety or depression Skin: No rash or itch Physical Exam Physical Exam: General: awake, alert, no apparent distress, white, male Head: Normocephalic, atraumatic ENT: PERRL, EOMI, no pharyngeal exudate, mucous membranes moist Chest: Clear to auscultation, on room air, no adventitious breath sounds Cardiac: Regular rate and rhythm, no murmur, no JVD, normal peripheral pulses, good capillary refill Abdominal: NABS x 4 quadrants, soft, nondistended, nontender to palpation, no rebound or guarding Back: Dressing C/D/I, LILLY drain in place draining serosanguineous bloody fluid Extremities: Normal inspection, no peripheral edema or erythema, calfs nontender to palpation Psych: Normal mood and affect Neuro: AAO x 3, strength intact bilaterally and rated 5/5, no motor deficits, speech is clear, no peripheral sensory deficits Results & Data Results & Data Vital Signs (Past 12 Hours) Vital Signs Temp Pulse Pulse Resp BP Pulse Ox O2 Del Method 02/25/23 11:25 36.2 C L 82 15 121/69 96 Nasal Cannula 02/25/23 11:15 77 14 124/69 96 Nasal Cannula 02/25/23 11:05 78 15 145/84 H 94 Nasal Cannula 02/25/23 10:55 85 17 169/87 H 94 Oxymask 02/25/23 10:46 36.6 C 81 17 156/79 H 94 Oxymask 02/25/23 06:27 Room Air 02/25/23 06:27 36.7 C 101 H 20 152/97 H 95 Room Air O2 Flow Rate 02/25/23 11:25 4 02/25/23 11:15 4 02/25/23 11:05 4 02/25/23 10:55 5 02/25/23 10:46 5 02/25/23 06:27 02/25/23 06:27 Medications Administered Current Inpatient Medications Acetaminophen (Acetaminophen 500 Mg Tab) 1,000 mg PO PREOP MEDARDO Stop: 02/25/23 18:00 Last Admin: 02/25/23 06:42 Dose: 1,000 mg Acetaminophen (Acetaminophen 500 Mg Tab) 1,000 mg PO Q8H MEDARDO Stop: 03/27/23 13:59 Last Admin: 02/25/23 14:24 Dose: 1,000 mg Acetaminophen (Acetaminophen 500 Mg Tab) 1,000 mg PO Q8H PRN PRN Reason: MILD Pain Scale 1,2,3 & Pre PT Stop: 03/27/23 12:12 Al Hydrox/Mg Hydrox/Simethicone (Aluminum/Magnesium Susp 30 Ml Udc) 30 ml PO Q6H PRN PRN Reason: Dyspepsia Stop: 03/27/23 12:12 Albuterol (Albuterol Hfa 8 Gm Inhaler) 2 puffs INH Q6H PRN PRN Reason: shortness of breath or wheezin Stop: 03/27/23 12:12 Atorvastatin Calcium (Atorvastatin 10 Mg Tab) 10 mg PO QAM MEDARDO Stop: 03/28/23 08:59 Bisacodyl (Bisacodyl 10 Mg Supp) 10 mg ME DAILY PRN PRN Reason: Constipation Stop: 03/27/23 12:12 Celecoxib (Celebrex 200 Mg Cap) 200 mg PO PREOP MEDARDO Stop: 02/25/23 18:00 Last Admin: 02/25/23 06:42 Dose: 200 mg Diphenhydramine HCl (Diphenhydramine Capsule 25 Mg Cap) 25 mg PO Q6H PRN PRN Reason: Allergic Rhinitis/Insomnia Stop: 03/27/23 12:12 Famotidine (Famotidine 20 Mg Tab) 20 mg PO Q12H PRN PRN Reason: Dyspepsia Stop: 03/27/23 12:12 Gabapentin (Gabapentin 300 Mg Cap) 300 mg PO PREOP MEDARDO Stop: 02/25/23 18:00 Last Admin: 02/25/23 06:42 Dose: 300 mg Lisinopril/HCTZ (Lisinopril/Hctz 20/12.5mg 1 Tab Tab) 1 tab PO QAM [facility] Stop: 03/28/23 08:59 Hydromorphone HCl (Hydromorphone Inj 0.5 Mg/0.5 Ml Syr) 0.5 mg IV Q3H PRN PRN Reason: MODERATE Pain (Scale 4,5,6) & Pre PT Stop: 03/11/23 12:12 Hydromorphone HCl (Hydromorphone Inj 1 Mg/Ml Syringe) 1 mg IV Q3H PRN PRN Reason: SEVERE Pain (Scale 7,8,9,10) Stop: 03/11/23 12:12 Hydroxyzine HCl (Hydroxyzine Hcl 25 Mg Tab) 25 mg PO Q8H PRN PRN Reason: Anxiety Stop: 03/27/23 12:12 Lactated Ringer's (Lr) 1,000 mls @ 15 mls/hr IV .Q24H MEDARDO Stop: 02/26/23 05:59 Last Infusion: 02/25/23 07:52 Dose: Infused Lactated Ringer's (Lr) 1,000 mls @ 60 mls/hr IV .[id number] MEDARDO Stop: 02/25/23 22:39 Last Admin: 02/25/23 06:55 Dose: Not Given Clindamycin Phosphate (Cleocin/D5w) 600 mg in 50 mls @ 100 mls/hr IV PREOP MEDARDO Stop: 02/26/23 05:59 Last Infusion: 02/25/23 12:15 Dose: Infused Lactated Ringer's (Lr) 1,000 mls @ 150 mls/hr IV .[id number] MEDARDO Stop: 03/27/23 12:12 Last Admin: 02/25/23 13:06 Dose: 150 mls/hr Promethazine HCl 12.5 mg/ (Sodium Chloride) 50.5 mls @ 202 mls/hr IV Q6H PRN PRN Reason: Nausea &/or Vomiting Stop: 03/27/23 12:12 Acetaminophen (Ofirmev) 1,000 mg in 100 mls @ 400 mls/hr IV Q8H PRN PRN Reason: Pain Rating 1-3 & Pre PT Stop: 02/26/23 12:13 Clindamycin Phosphate (Cleocin/D5w) 600 mg in 50 mls @ 100 mls/hr IV Q8H MEDARDO Stop: 02/26/23 00:59 Lorazepam 0.5 mg/ Syringe 0.5 mls @ 2 mls/min IV Q8H PRN; Protocol PRN Reason: Sedation/Anxiety Stop: 03/27/23 12:12 Dexamethasone 6 mg/ Syringe 1.5 mls @ 1 mls/min IV DAILY MEDARDO Stop: 02/28/23 09:02 Influenza Virus Vaccine Quadrival (Do Not Administer Flu Vaccine) 1 each N/A PRN PRN PRN Reason: Notification Stop: 03/27/23 12:12 Ketorolac Tromethamine (Ketorolac Tromethamine 15 Mg/Ml Vial) 15 mg IV Q6H [facility] Stop: 02/26/23 07:01 Last Admin: 02/25/23 14:23 Dose: 15 mg Lorazepam (Lorazepam 0.5 Mg Tab) 0.5 mg PO Q8H PRN PRN Reason: Sedation/Anxiety Stop: 03/27/23 12:12 Magnesium Hydroxide (Magnesium Hydroxide Susp 30 Ml Udc) 30 ml PO Q24H PRN PRN Reason: Constipation Stop: 03/27/23 12:12 Metoclopramide HCl (Metoclopramide Hcl Inj 5 Mg/Ml 2 Ml Vial) 10 mg IV Q6H PRN PRN Reason: Nausea &/or Vomiting Stop: 03/27/23 12:12 Naloxone HCl (Naloxone Hcl 0.4 Mg/1 Ml Vial/Carp) 0.1 mg IV Q5M PRN PRN Reason: Oversedation/Resp depression Stop: 03/27/23 12:12 Ondansetron HCl (Ondansetron Inj 2 Mg/Ml 2 Ml Vial) 4 mg IV Q6H PRN PRN Reason: Nausea &/or Vomiting Stop: 03/27/23 12:12 Ondansetron HCl (Ondansetron 4 Mg Od Tab) 4 mg PO Q6H PRN PRN Reason: Nausea Stop: 03/27/23 12:12 Pantoprazole Sodium (Pantoprazole 40 Mg Tab) 40 mg PO QAM MEDARDO Stop: 03/28/23 08:59 Pneumococcal Polyvalent Vaccine (Do Not Administer Pneumococcal Vaccine) 1 each N/A PRN PRN PRN Reason: Notification Stop: 03/27/23 12:12 Polyethylene Glycol (Polyethylene (Miralax) 17 Gm Pack) 17 gm PO Q6 MEDARDO Stop: 03/28/23 05:59 Senna/Docusate Sodium (Docusate Sodium/Senna 50/8.6mg Tab) 2 tab PO HS MEDARDO Stop: 03/27/23 20:59 Sodium Biphosphate/Sodium Phosphate (Sod Phosphate/Sod Biphosphate Enema 132 Ml Btl) 132 ml ME ONE PRN PRN Reason: Constipation Stop: 03/27/23 12:12 Tramadol HCl (Tramadol Hcl 50 Mg Tablet) 50 - 100 mg PO Q4H PRN PRN Reason: Moderate-Severe pain & Pre PT Stop: 03/27/23 12:12
[2023-02-25] MEDS: LACTATED RINGER'S 1,000 ML IV SCH ×2 (13:06→18:11)
[2023-02-25] MEDS: KETOROLAC TROMETHAMINE 15 MG/ML VIAL IV SCH ×2 (14:23→20:49)
[2023-02-25] MEDS: ACETAMINOPHEN 500 MG TAB PO SCH ×2 (14:24→20:45)
[2023-02-25] MEDS: CLINDAMYCIN/D5W 600 MG/50 ML BAG IV SCH (17:39)
[2023-02-25] MEDS: DOCUSATE SODIUM/SENNA 50/8.6MG TAB PO SCH (20:45)
[2023-02-26] MEDS: CLINDAMYCIN/D5W 600 MG/50 ML BAG IV SCH (00:49)
[2023-02-26] MEDS: LACTATED RINGER'S 1,000 ML IV SCH (00:49)
[2023-02-26] MEDS: KETOROLAC TROMETHAMINE 15 MG/ML VIAL IV SCH ×2 (00:50→05:39)
[2023-02-26] MEDS: POLYETHYLENE (MIRALAX) 17 GM PACK PO SCH ×3 (05:37→18:14)
[2023-02-26] MEDS: ACETAMINOPHEN 500 MG TAB PO SCH ×3 (05:38→21:32)
[2023-02-26 07:37] LABS: Hematocrit (blood only) 34.4 % (42.0-52.0); Hemoglobin 12.1 g/dl (14.0-18.0); Immature Granulocytes # (auto) 0.06 K/uL (0.01-0.20); Immature Granulocytes % (auto) 0.6 %; Lymphocytes # (auto) 1.01 K/uL (1.20-3.40); Lymphocytes % (auto) 10.8 %; Mean Corpuscular Hemoglobin 31.7 pg (25.0-34.0); Mean Corpuscular Hgb Conc 35.2 g/dL (32.0-36.0); Mean Corpuscular Volume 90.1 fL (80.0-100.0); Mean Platelet Volume 10.2 fL (9.4-12.4); Monocytes # (auto) 0.58 K/uL (0.11-0.59); Monocytes % (auto) 6.2 %; Neutrophils # (auto) 7.67 K/uL (1.40-6.50); Neutrophils % (auto) 82.4 %; Platelet Count 153 K/uL (130-400); RDW Coefficient of Variation 12.9 % (11.5-14.5); RDW Standard Deviation 42.5 fL (36.4-46.3); Red Blood Count 3.82 M/uL (4.70-6.10); White Blood Count 9.32 K/ul (4.8-10.8)
[2023-02-26 07:49] LABS: BUN Creatinine Ratio 22.3 (10-20); Calcium 8.5 mg/dl (8.6-10.3); Creatinine Clr Calc Pharmacy 93.3 ml/min; Est GFR (African American) 94.8 ml/min; Est GFR (Non-African American) 81.8 ml/min; Potassium 4.3 mmol/L (3.5-5.1)
--- NOTE | 2023-02-26 08:49 | Orthopedic Progress Note ---
Date of Service February 26, 2023 Assessment & Plan (1) Neurogenic claudication due to lumbar spinal stenosis: Plan: At this point we will initiate physical therapy monitor LILLY output hopefully discharge home in next few days. Admission and Anticipated Discharge Date Admission Date: February 25, 2023 Subjective Back pain controlled leg pain improved Physical Exam Physical Exam: Patient is currently in bed. Discussing testing. He was comfortable. Results & Data Vital Signs (Past 12 Hours) Vital Signs Temp Pulse Resp BP Pulse Ox O2 Del Method 02/26/23 07:29 36.5 C 90 16 156/89 H 94 Room Air 02/26/23 03:00 36.7 C 88 16 128/77 91 Room Air 02/25/23 23:00 36.6 C 85 16 118/71 93 Room Air Queries Orthopedic Spine Obesity: Yes
[2023-02-26] MEDS: traMADol HCL 50 MG TABLET PO PRN ×2 (08:50→18:14)
[2023-02-26] MEDS: PANTOprazole 40 MG TAB PO SCH (08:50)
[2023-02-26] MEDS: ATORVASTATIN 10 MG TAB PO SCH (08:50)
[2023-02-26] MEDS: LISINOPRIL/HCTZ 20/12.5MG 1 TAB TAB PO SCH (08:50)
[2023-02-26] MEDS: dexAMETHasone 6 MG in SYRINGE 0 ML IV SCH (08:51)
--- NOTE | 2023-02-26 13:29 | Hospitalist Progress Note ---
Date of Service February 26, 2023 Assessment & Plan (1) Neurogenic claudication due to lumbar spinal stenosis: (2) Lumbar stenosis: Plan: Acute blood loss anemia - S/p Lumbar decompression fusion of L1-L3, hardware removal of L3-S1 on February 25, 2023 - Pain management, bowel regimen and DVT ppx per the primary team - PT/OT consults, pt is planning on outpatient therapy -Hemoglobin down trended from 15.2 preoperatively to 12.1 postoperatively Continue to monitor (3) Hypertension: Plan: - Chronic, stable - Continue on lisinopril/HCTZ (4) GERD (gastroesophageal reflux disease): Plan: - Chronic, stable, cont omeprazole (5) Sleep apnea: Plan: - Chronic, continue CPAP HS (6) Hyperlipidemia: Plan: - Chronic, stable, Cont atorvastatin 10 mg QAM DVT ppx:teds, scds Lines: 2 PIV GI/FEN: Clear and advance as tolerated CODE: FULL Dispo: From home, likely to remain in the hospital x 1-2 days Thank you for involving us in the care of Mr. Cortez. Please do not hesitate to call with questions or concerns. At this time medicine service will follow along. Admission and Anticipated Discharge Date Admission Date: February 25, 2023 Subjective Patient seen and examined at bedside. Is sitting up on the chair comfortably without any distress. He walked with the help of walker with physical therapy Hoffman catheter is taken out Review of Systems Review of Systems: All systems reviewed & are unremarkable except as noted in Subjective Physical Exam Physical Exam: General: awake, alert, no apparent distress, white, male Head: Normocephalic, atraumatic ENT: PERRL, EOMI, no pharyngeal exudate, mucous membranes moist Chest: Clear to auscultation, on room air, no adventitious breath sounds Cardiac: Regular rate and rhythm, no murmur, no JVD, normal peripheral pulses, good capillary refill Abdominal: NABS x 4 quadrants, soft, nondistended, nontender to palpation, no rebound or guarding Back: Dressing C/D/I, LILLY drain in place draining serosanguineous bloody fluid Extremities: Normal inspection, no peripheral edema or erythema, calfs nontender to palpation Psych: Normal mood and affect Neuro: AAO x 3, strength intact bilaterally and rated 5/5, no motor deficits, speech is clear, no peripheral sensory deficits Results & Data Results & Data Vital Signs (Past 12 Hours) Vital Signs Temp Pulse Resp BP Pulse Ox O2 Del Method 02/26/23 11:41 36.8 C 96 H 18 135/81 94 Room Air 02/26/23 07:29 36.5 C 90 16 156/89 H 94 Room Air 02/26/23 03:00 36.7 C 88 16 128/77 91 Room Air Laboratory Results Laboratory Results WBC 9.32 K/ul (4.8-10.8) 02/26/23 06:57 RBC 3.82 M/uL (4.70-6.10) L 02/26/23 06:57 Hgb 12.1 g/dl (14.0-18.0) L 02/26/23 06:57 Hct 34.4 % (42.0-52.0) L 02/26/23 06:57 MCV 90.1 fL (80.0-100.0) 02/26/23 06:57 MCH 31.7 pg (25.0-34.0) 02/26/23 06:57 MCHC 35.2 g/dL (32.0-36.0) 02/26/23 06:57 RDW Std Deviation 42.5 fL (36.4-46.3) 02/26/23 06:57 RDW Coeff of Stormy 12.9 % (11.5-14.5) 02/26/23 06:57 Plt Count 153 K/uL (130-400) 02/26/23 06:57 MPV 10.2 fL (9.4-12.4) 02/26/23 06:57 Immature Gran % (Auto) 0.6 % 02/26/23 06:57 Neut % (Auto) 82.4 % 02/26/23 06:57 Lymph % (Auto) 10.8 % 02/26/23 06:57 [place] % (Auto) 6.2 % 02/26/23 06:57 Eos % (Auto) 0.0 % 02/26/23 06:57 Baso % (Auto) 0.0 % 02/26/23 06:57 Neut # (Auto) 7.67 K/uL (1.40-6.50) H 02/26/23 06:57 Lymph # (Auto) 1.01 K/uL (1.20-3.40) L 02/26/23 06:57 [place] # (Auto) 0.58 K/uL (0.11-0.59) 02/26/23 06:57 Eos # (Auto) 0.00 K/uL (0.00-0.50) 02/26/23 06:57 Baso # (Auto) 0.00 K/uL (0.00-0.20) 02/26/23 06:57 Immature Gran # (Auto) 0.06 K/uL (0.01-0.20) 02/26/23 06:57 Sodium 134 mmol/L (136-145) L 02/26/23 06:57 Potassium 4.3 mmol/L (3.5-5.1) 02/26/23 06:57 Chloride 102 mmol/L (98-107) 02/26/23 06:57 Carbon Dioxide 24 mmol/L (21-32) 02/26/23 06:57 Anion Gap 8 (3-11) 02/26/23 06:57 BUN 21 mg/dl (6-23) 02/26/23 06:57 Creatinine 0.94 mg/dl (0.6-1.4) 02/26/23 06:57 Est Cr Clr Drug Dosing 93.3 ml/min 02/26/23 06:57 Est GFR ( Amer) 94.8 ml/min 02/26/23 06:57 Est GFR (Non-Af Amer) 81.8 ml/min 02/26/23 06:57 BUN/Creatinine Ratio 22.3 (10-20) H 02/26/23 06:57 Glucose 154 mg/dl (70-99(Fasting)) H 02/26/23 06:57 Calcium 8.5 mg/dl (8.6-10.3) L 02/26/23 06:57 Impressions Lumbar Spine X-Ray 02/25/23 07:45 INTRAOPERATIVE RADIOGRAPHS CLINICAL HISTORY: Lumbar spinal fusion. Fluoro time: 26 seconds Ka,r: 23.07 mGy FINDINGS: 2 spot fluoroscopic views of the lumbar spine are presented. There has been discectomy with laminectomy and posterior fusion in the upper lumbar region. This is reportedly L2-L3. The exact level cannot be delineated on the provided images. Interpedicular screws are present at both levels. The orthopedic hardware appears intact. Hardware is also partially visualized in the lower lumbar region. IMPRESSION: Intraoperative images from lumbar spinal fusion surgery as above. Electronically signed by: Pan Peralta M.D. 02/25/2023 10:49 AM
[2023-02-26] MEDS: DOCUSATE SODIUM/SENNA 50/8.6MG TAB PO SCH (21:33)
[2023-02-27] MEDS: POLYETHYLENE (MIRALAX) 17 GM PACK PO SCH ×3 (00:57→12:27)
[2023-02-27] MEDS: ACETAMINOPHEN 500 MG TAB PO SCH (06:05)
[2023-02-27] MEDS: PANTOprazole 40 MG TAB PO SCH (08:37)
[2023-02-27] MEDS: LISINOPRIL/HCTZ 20/12.5MG 1 TAB TAB PO SCH (08:37)
[2023-02-27] MEDS: ATORVASTATIN 10 MG TAB PO SCH (08:37)
--- NOTE | 2023-02-27 09:40 | Discharge Summary ---
Date of Service February 27, 2023 Admission HPI Per Admitting Provider This is a 72-year-old male well-known to me the presents for chronic persistent back and leg pain after failing course of nonoperative care is here for surgical invention. Admission Exam (Per Admitting) Constitutional WD/WN, vitals as above Eyes PERRL, conjunctivae normal, anicteric sclerae ENMT external ear and nose normal, oropharynx normal Neck normal visual inspection Respiratory normal respiratory effort Cardiovascular Extremities: normal capillary refill Gastrointestinal (Abdomen) Inspection/Auscultation: abdomen normal to inspection Musculoskeletal Spine: + pain with thoraco-lumbar ROM Extremities: extremities normal to inspection and strength 5/5 throughout Skin no rashes, warm and dry Neurologic normal touch/pain/proprioception and moves all extremities Psychiatric A+Ox3, euthymic affect Discharge Data Consultations 02/25/23 12:13 Consult Hospitalist Routine Procedures Performed Operation Date: 02/25/23 07:45 Actual Procedures p L2-L3 Decompression and Fusion, Spinal Cord Monitoring - Deangelo Plasencia DO s L3-S1 Hardware Removal - Deangelo Plasencia DO Hospital Course (1) Neurogenic claudication due to lumbar spinal stenosis: Denies being discharged home on postoperative day 2 status post hard removal L3- S1, decompression instrumented fusion L2-3. He had an uneventful hospital course. Pain is controlled. He has had a bowel movement. He is making great progress in physical therapy daily plus the hallways. LILLY drain output is 90 cc/shift. He is therefore going to be discharged home with drain intact and has received instructions for removal early next week with our office Discharge Instructions ACTIVITY RECOMMENDATIONS: SELF CARE INSTRUCTIONS AFTER THORACIC/LUMBAR FUSIONS 1. You may walk to your tolerance. It is good exercise for your legs and back. Expect some back and intermittent leg aches and pains. 2. You may perform "counter-top" level activities (make a sandwich, nely with a project, etc.). 3. No bending or lifting of more than 10 pounds or back twisting of any nature (roll like a log when turning in bed). 4. You may ride in a car for 20-30 minutes at a time. No driving until after your first visit with your doctor. 5. Frequent changes of position and restricting sitting to 30 minutes at a time will help limit the amount of back spasms and stiffness you may experience. 6. You may discontinue the use of ambulatory aids (cane, crutches, etc.) once your strength and confidence allow. 7. You may machine buffer the shower and let water strike your incision when you arrive home at least once daily. Do not take a tub bath, sit in a hot tub or go into a swimming pool until after your first recheck in the office. SPECIAL CARE INSTRUCTIONS: VERY IMPORTANT TO READ AND REVIEW A. Your surgical incision has been closed with a cosmetic suture under the skin that will dissolve in about 6 weeks. In 14 days, you can use a pair of clean scissors and cut the suture that is left outside of the skin at the ends of your incision. 1. The small skin tapes can be removed 7 days after surgery if they have not fallen off by that point. 2. You may keep the wound open to air as much as possible to promote healing after post-op day number 5 unless told otherwise by your doctor. 3. If you think the wound looks like it is becoming infected (redness or worsening drainage) and/or you are experiencing fever, chill or worsening back pain and muscle spasms, contact the office so that we may evaluate you as soon as possible. B. Complications are uncommon, but please contact us if you have any signs or symptoms of: 1. wound infection (fever higher than 102.5 degrees F, redness, separation of wound, drainage, or increasing pain from the incision) 2. blood clots in legs (pain, swelling, redness and warmth in legs) 3. urinary tract infection (fever higher than 102.5 degrees F, burning upon urination or increased frequency of urination) 4. nerve problems (inability to walk on your toes or heels, numbness, loss of bowel or bladder control) 5. any other symptoms that concern you C. Please call the office at if you have any concerns or questions about your operation or recovery. D. No smoking! Smoking drastically decreases the chance of a solid fusion. E. Do not take any anti-inflammatory medications (Indocin, Advil, Motrin, Aspirin, Naprosyn, etc.) as these may inhibit the chance of a solid fusion. Tylenol is okay to take for pain. MANAGING PAIN AFTER SPINAL SURGERY 1. Narcotic medication is intended for short-term use and will be provided for surgical pain. Surgical pain usually lasts for a period of 4-6 weeks. Narcotic medication includes Percocet, Vicodin, Darvocet, Tylenol #3 or Lortab. 2. Longer-term pain is more appropriately treated with non-narcotic medication such as Tylenol ES. 3. Muscle spasm is not appropriately treated with narcotics. Muscle relaxers such as Soma, Flexeril or Skelaxin can be used along with Tylenol ES. 4. Remember that we all live with some "aches and pains". This is not unusual or uncommon after an injury or as we get older. a. Back pain is expected and may include muscle spasms for 4 to 6 weeks after surgery. The pain should gradually improve. If the pain worsens for no apparent reason, please contact the office. b. Intermittent leg pain may also be experienced and should not be concerned about unless it worsens for no apparent reason. If so, please contact the office. 5. We will provide appropriate medication within the normal guidelines of their prescribed use. We will also be very cautious and aware of potential abuse and extended duration of patients' medication needs. a. Pain medications are for your comfort and to assist with sleep and rest so that the tissue can heal. They are not provided in order to return to normal activity and should not be used through the day. To do so or worsening pain at night can result from ongoing tissue damage and development of tolerance to the prescribed medicine. 6. Please allow 2-3 days to process refills. Prescriptions will not be mailed but must be picked up at the office. FOLLOW UP VISIT: Keep your scheduled follow-up appointment. Any questions, please call the office at .
[2023-02-27] MEDS: dexAMETHasone 6 MG in SYRINGE 0 ML IV SCH (09:53)
[2023-02-27] MEDS: traMADol HCL 50 MG TABLET PO PRN (12:26)
--- NOTE | 2023-02-27 14:32 | Hospitalist Progress Note ---
Date of Service February 27, 2023 Assessment & Plan (1) Neurogenic claudication due to lumbar spinal stenosis: (2) Lumbar stenosis: Plan: Acute blood loss anemia - S/p Lumbar decompression fusion of L1-L3, hardware removal of L3-S1 on February 25, 2023 - Pain management, bowel regimen and DVT ppx per the primary team - PT/OT consults, pt is planning on outpatient therapy -Hemoglobin down trended from 15.2 preoperatively to 12.1 postoperatively Continue to monitor (3) Hypertension: Plan: - Chronic, stable - Continue on lisinopril/HCTZ (4) GERD (gastroesophageal reflux disease): Plan: - Chronic, stable, cont omeprazole (5) Sleep apnea: Plan: - Chronic, continue CPAP HS (6) Hyperlipidemia: Plan: - Chronic, stable, Cont atorvastatin 10 mg QAM DVT ppx:teds, scds Lines: 2 PIV GI/FEN:advance as tolerated CODE: FULL Admission and Anticipated Discharge Date Admission Date: February 25, 2023 Subjective Patient seen and examined at bedside. He is sitting up on the chair at the side of the bed; not in any distress. He had a small bowel movement. He is voiding well without any difficulty. Review of Systems Review of Systems: All systems reviewed & are unremarkable except as noted in Subjective Results & Data Results & Data Vital Signs (Past 12 Hours) Vital Signs Temp Pulse Resp BP Pulse Ox O2 Del Method 02/27/23 08:10 36.7 C 84 18 144/83 H 94 Room Air
== END 2023-02-27 13:00 | disposition home health service (06) | DRG 454 ==
LOC: ASU 06:03 → 3E 10:30